=== PATIENT | male | born 1990 | race Caucasian/White ===

== ENCOUNTER 2022-08-11 14:02 | Emergency (ER) | payer OTHER ==
[~2022-08-11] VITALS: Ht 175.3 cm; Wt 95.3 kg
--- NOTE | 2022-08-11 14:58 | NUR ---
TO ER BED 12,MONITORED
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
[2022-08-11] MEDS ORDERED: NALO4SPR BNOSTRILS (17:06)
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
[2022-08-11 17:36] VITALS: BP 130/80
== END 2022-08-11 17:36 | disposition home or self-care (01) ==
LOC: ER 14:04
DX: T40.2X1A Poisoning by other opioids, accidental (unintentional), initial encounter (principal); R41.82 Altered mental status, unspecified; Z60.2 Problems related to living alone; Z79.899 Other long term (current) drug therapy; Y92.89 Other specified places as the place of occurrence of the external cause

== ENCOUNTER 2022-09-08 17:50 | Emergency (ER) | payer OTHER ==
[~2022-09-08] VITALS: Ht 175.3 cm; Wt 90.7 kg
[~2022-09-08 17:50] MED LIST: NALO4SPR BNOSTRILS
[2022-09-08 18:20] VITALS: BP 129/81
--- NOTE | 2022-09-08 19:58 | NUR ---
Patient discharged to home in stable condition. Written and verbal after care instructions given. Patient verbalizes understanding of instruction.
== END 2022-09-08 22:37 | disposition home or self-care (01) ==
LOC: ER 18:00
DX: S80.02XA Contusion of left knee, initial encounter (principal); M25.462 Effusion, left knee; Z60.2 Problems related to living alone; X58.XXXA Exposure to other specified factors, initial encounter; Y93.89 Activity, other specified; Y92.89 Other specified places as the place of occurrence of the external cause; Y99.8 Other external cause status